=== PATIENT | female | born 1950 | race Caucasian/White ===

== ENCOUNTER → 2016-12-14 | Outpatient (CLI) | payer OTHER ==
[~2016-12-14] MED LIST: ASCO500T16 PO; ATV/1 PO; CALC500C3 PO; CHOL100010 PO; CHOL1TAB76 PO; CLR10 PO; CYM/30 PO; FLUT0.0529 NAE; GLUCTAB4 PO; HYDR-5688 PO; IBUP-1451 PO; MONT1TAB3 PO; MULT-506 PO; OMEP40CA41 PO; POTA1TAB PO; SUMA100T15 PO; SUMA50TA15 PO; TRAZ100T29 PO; TRIA0.1C20 TOP; potassium gluconate PO
--- NOTE | 2016-12-14 14:48 | DIAGNOSTIC IMAGING REPORT ---
RIGHT SHOULDER MRI HISTORY: RIGHT SHOULDER PAIN, BICEP TENDINITIS Right TECHNIQUE: Multiplanar multisequence MRI of the right shoulder was performed without contrast. COMPARISON STUDY: Right shoulder MRI 10/03/2015. FINDINGS: AC joint: Partially obscured by metallic artifact but appears to be grossly intact. Rotator cuff: Abnormal signal within the distal attachment of the supraspinatus tendon consistent with a partial bursal surface tear. Best seen on coronal image 7 there is a linear full-thickness tear within the mid to distal supraspinatus tendon. There is also a small area of increased signal within the distal subscapularis tendon consistent with a partial tear. The infraspinatus and teres minor tendons appear intact. Mild fatty atrophy of supraspinatus muscle. No associated retraction. Trace fluid within the subacromial/subdeltoid bursa. Labrum: Abnormal signal and configuration within the superior labrum consistent with a SLAP tear. Biceps tendon: Abnormal intrasubstance signal proximally consistent with a mild tendinopathy. Bones: No fracture or dislocation. Small amount of cystic change within the posterior lateral humeral head. Cartilage: Intact Miscellaneous: No significant joint effusion. IMPRESSION: 1. Small linear full-thickness tear involving the mid to distal supraspinatus tendon. There is also a partial bursal surface tear at the distal attachment of the supraspinatus tendon. 2. Small partial tear of the distal subscapularis tendon. 3. SLAP tear. 4. Mild proximal biceps tendinopathy. Electronically signed by: Martir Moseley M.D. 12/14/2016 2:47 PM Dictated Date/Time: 12/14/2016 2:38 PM
== END | disposition home or self-care (01) ==
LOC: C.MRI 13:41
PROVIDERS: ATTEND Orthopaedic Surgery
DX: S43.431A Superior glenoid labrum lesion of right shoulder, initial encounter (principal); M75.101 Unspecified rotator cuff tear or rupture of right shoulder, not specified as traumatic; M75.21 Bicipital tendinitis, right shoulder; X58.XXXA Exposure to other specified factors, initial encounter

== ENCOUNTER → 2016-12-21 | Outpatient (CLI) | payer OTHER ==
--- NOTE | 2016-12-21 15:33 | DIAGNOSTIC IMAGING REPORT ---
CHEST 2 VIEWS ROUTINE CLINICAL HISTORY: M75.21 BICEPS TENDINITIS preoperative evaluation COMPARISON STUDY: 02/26/2015 FINDINGS: The bones soft tissues and hemidiaphragms are normal. The cardiomediastinal silhouette is normal. The lungs are clear. The pulmonary vasculature is normal. IMPRESSION: Negative chest. Electronically signed by: Efren Lucio M.D. 12/21/2016 3:32 PM Dictated Date/Time: 12/21/2016 3:31 PM
[2016-12-21 15:36] LABS: BASO % 0.3 %; BASO ABS # 0.02 K/uL (0-0.2); COMPLETE YES; EOS % 0.8 %; HEMATOCRIT 41.3 % (37-47); IG% 0.2 %; LYMPH % 29.8 %; LYMPH ABS # 1.91 K/uL (1.2-3.4); MEAN CELL VOLUME 94.3 fL (80-100); MEAN CORPUSCULAR HEMOGLOBIN 32.4 pg (25-34); MEAN CORPUSCULAR HGB CONC 34.4 g/dl (32-36); MEAN PLATELET VOLUME 9.4 fL (7.4-10.4); MONO % 10.9 %; PLATELET COUNT 298 K/uL (130-400); RED BLOOD COUNT 4.38 M/uL (4.2-5.4); WHITE BLOOD COUNT 6.42 K/uL (4.8-10.8)
[2016-12-21 15:56] LABS: BLOOD UREA NITROGEN 18 mg/dl (7-18); BUN/CREATININE RATIO 21.3 (10-20); CALCIUM 8.9 mg/dl (8.5-10.1); CARBON DIOXIDE 31 mmol/L (21-32); CHLORIDE 99 mmol/L (98-107); CREATININE 0.85 mg/dl (0.60-1.20); GLUCOSE 87 mg/dl (70-99); POTASSIUM 3.8 mmol/L (3.5-5.1); SODIUM 138 mmol/L (136-145)
== END | disposition home or self-care (01) ==
LOC: C.RAD 14:43
PROVIDERS: ATTEND Orthopaedic Surgery
DX: Z01.818 Encounter for other preprocedural examination (principal); M75.21 Bicipital tendinitis, right shoulder

== ENCOUNTER → 2017-01-14 | Day surgery (SDC) | payer OTHER ==
[2016-12-31 09:03] VITALS: Ht 154.9 cm; Wt 52.7 kg
[~2017-01-14] VITALS: Ht 154.9 cm; Wt 52.7 kg
[~2017-01-14] MED LIST changes: +ATROPINE SULFATE 0.1 MG/ML 5ML SYR IV PRN; +BUPIVACAINE/EPINEPHRINE 0.25% 1:200,000 30 ML VIAL ONE; -CHOL100010 PO; +CLINDAMYCIN PHOS 150 MG/ML 2 ML VIAL IV SCH; -CLR10 PO; +DEXAMETHASONE SOD INJ 4 MG/ML VIAL IV PRN; +EpHEDrine SULFATE INJ 50 MG/ML AMP IV PRN; +EpHEDrine SULFATE INJ 50 MG/ML AMP ONE; +EpINEphrine INJ 1MG/ML AMP 1 MG/ML AMP ONE; +FENTANYL CITRATE INJ 50 MCG/1 ML 2 ML VIAL IV PRN; +FENTANYL CITRATE INJ 50 MCG/1 ML 2 ML VIAL ONE; +HYDROCODONE/ACETAMOPHEN 5/325MG TAB PO PRN; +KETOROLAC TROMETHAMINE 15 MG/ML VIAL IV. PRN; +LABETALOL HCL IV 5 MG/ML 20ML IV PRN; +LACTATED RINGER'S 1000ML 1,000 ML IV SCH; +LACTATED RINGER'S 1000ML 500 ML IV SCH; +LIDOCAINE HCL 1% MPF 2 ML VIAL ONE; +LIDOCAINE HCL 2% 2 ML VIAL (20MG/ML) ONE; +METOCLOPRAMIDE HCL INJ 5 MG/ML 2 ML VIAL IV PRN; +MIDAZOLAM HCL 1 MG/ML 2ML VIAL ONE; +MoRPHine SULFATE 10 MG/ML CARP/VIAL IV PRN; +ONDANSETRON INJ 2 MG/ML 2 ML VIAL IV PRN; +PHENYLEPHRINE 100MCG/ML 5ML SYR IV PRN; +PROPOFOL IV EMULSION 10 MG/ML 20 ML VIAL IV ONE; +ROPIVACAINE 0.5% 5 MG/ML 30 ML VIAL ONE; +SODIUM CHLORIDE 0.9% 1000ML 1,000 ML IV SCH; +SODIUM CHLORIDE 0.9% INJ 10 ML VIAL ONE; -SUMA50TA15 PO; -TRAZ100T29 PO; -TRIA0.1C20 TOP; -potassium gluconate PO
--- NOTE | 2017-01-14 11:16 | History & Physical Bridge - SC ---
H&P Re-Evaluation Bridge Note: I have examined the patient, reviewed the History & Physical and in the interval since the performance of the History & Physical I have noted the following changes of clinical significance: No changes noted
--- NOTE | 2017-01-14 13:04 | Discharge Instructions-SurgCtr ---
Discharge Instructions Date of Service Jan 14, 2017. Visit Reason for Visit: Right Shoulder Biceps Tendinitis Discharge Discharge Diagnosis / Problem: SAME ABOVE Discharge Goals Goal(s): Decrease discomfort, Improve function Medications Stopped Medications Name(s): HELD IBUPROFEN FOR ONE WEEK Restart Stopped Medication(s): MAY RESTART ONCE FINISHED WITH THE TORADOL Activity Recommendations Activity Limitations: as noted below Lifting Limitations: until after follow-up appointment Exercise/Sports Limitations: until after follow-up appointment Shower/Bathe: tomorrow Anesthesia . Post Anesthesia Instructions: If you have had General Anesthesia or IV Sedation: * Do not drive today. * Resume driving when surgeon permits. * Do not make important decisions or sign legal documents today. * Call surgeon for: 1. Temperature elevations greater than 101 degrees F. 2. Uncontrollable pain. 3. Excessive bleeding. 4. Persistent nausea and vomiting. 5. Medication intolerance (nausea, vomiting or rash). * For nausea and vomiting use only clear liquids such as: tea, soda, bouillon until nausea subsides, then gradually increase diet as tolerated. * If you have any concerns or questions, call your surgeon's office. If physician is unavailable and it is an emergency, call 911 or go to the nearest emergency room. . Instructions / Follow-Up Instructions / Follow-Up MEDICATIONS: * Resume previous medications unless instructed otherwise by your surgeon. * Always take pain medication on a full stomach or with food to avoid upset stomach. * Do not drink alcohol or drive while taking narcotics. * Ibuprofen or Tylenol may be taken if narcotic not needed. SPECIAL CARE INSTRUCTIONS: __ None _X_ Keep extremity elevated and iced x 48 hours; apply ice 20-30 minutes 8-10 times/day. May remove at night. _X_ Sling (MAY REMOVE AFTER 48 HOURS ONLY TO SHOWER AND FOR THERAPY) _X_24 hrs/day __ Remove at night __ Shoulder Immobilizer __ 24 hrs/day __ Remove at night _X_ Dressing __ Maintain until seen in office, may shower with plastic over site _X_ Remove dressings in 24-48 hours and then may shower _X_ Cover incisions with band-aids after showering __ Do not remove steri-strips Call physician if chills or temperature rises above 102 degrees or pain unrelieved by prescribed pain medications at . . Diet Recommendations Home Diet: no limitations Fluid Restriction: None Procedures Procedures Performed: Right Shoulder Arthroscopy, Small Rotator Cuff Repair, Extensive Debridement, Biceps Tenotomy Pending Studies Studies pending at discharge: no Work Instructions Return To Work: after follow-up Lifting Limitations: NO LIFTING WITH RIGHT ARM Medical Emergencies . Who to Call and When: Medical Emergencies: If at any time you feel your situation is an emergency, please call 911 immediately. . Non-Emergent Contact Non-Emergency issues call your: Primary Care Provider Call Non-Emergent contact if: you have a fever, temperature is above 101, temperature is above 101.5 . . "Provider Documentation" section prepared by Raymond Whitaker.
--- NOTE | 2017-01-14 13:14 | [facility] Post Operative Brief Note ---
Immediate Operative Summary Operative Date Jan 14, 2017. Pre-Operative Diagnosis Right Shoulder Biceps Tendinitis Post-Operative Diagnosis Same Procedure(s) Performed Right Shoulder Arthroscopy, Small Rotator Cuff Repair, Extensive Debridement, Biceps Tenotomy Surgeon Dr. Lerner Pipe Crew Foreman Surgeon(s) Kelly Whitaker PA-C Estimated Blood Loss Minimal Findings as above Specimens None Complication(s) None Disposition Recovery Room / PACU
--- NOTE | 2017-01-14 13:23 | OPERATIVE REPORT ---
DATE OF OPERATION: 01/14/2017 PREOPERATIVE DIAGNOSIS: Partial thickness cuff tear of the right shoulder 1 year status post right shoulder arthroscopy. POSTOPERATIVE DIAGNOSIS: Same. PROCEDURE: Right shoulder diagnostic arthroscopy with extensive debridement including removal of scar tissue, acromioplasty, small far anterior rotator cuff repair and biceps tenotomy. SURGEON: Dr. Talat Lerner. PATROL JUDGE: Lopez Whitaker PA-C, whose assistance was necessary for positioning of the arm and helping with instrumentation. ANESTHESIA: General with a right interscalene nerve block. COMPLICATIONS: None. CONDITION: Stable to PACU. INDICATIONS: Mari is a pleasant 66-year-old female who underwent a right shoulder arthroscopy at an outside institution a year ago. She had a simple acromioplasty at that time. Unfortunately, she never did better after surgery and continued to have pain. Repeat MRI showed a high grade partial thickness cuff tear and biceps tendinopathy. After failing conservative treatment, she elected to undergo arthroscopy. DESCRIPTION OF PROCEDURE: On 01/14/2017, she arrived at [facility] for the above procedure. She was seen in the preoperative holding area and the operative extremity was identified and signed. She was given a preoperative antibiotic and a right interscalene nerve block. She was taken back to the operating room, laid on the table in supine position and put under general anesthesia. She was then put into the beachchair position. The right shoulder was prepped and draped in sterile fashion. Time-out was done and the patient and operative extremity was properly identified. A scope was introduced in the posterior portal. Diagnostic arthroscopy showed no cartilage damage to the humeral head or the glenoid. There was some fraying of the anterior labrum. There was some tightness of the rotator interval. The biceps tendon went through an enlarged biceps belkys mechanism and was read on the dorsal aspect. There was a high grade partial thickness cuff tear of the far anterior supraspinatus and the remaining tissue did not look very good. The subscapularis, infraspinatus and teres minor were all checked and intact. An anterior portal was made, a shaver was used to do a limited debridement of the intraarticular structures and the biceps tendon was arthroscopically tenotomized. The scope was put into the subacromial space. A lateral portal was made. A shaver was used to do a complete subacromial and subdeltoid bursectomy. An ablator was used to tease the coracoacromial ligament off the undersurface of the acromion and a shaver was used to do a revision acromioplasty to smooth out the undersurface of the acromion. Extensive debridement was done all the scar tissue in the subacromial space and hemostasis was controlled with an ablator. The bursal side of the rotator cuff was examined extensively. The rotator cuff tear was easily completed. An additional anterolateral portal was made and Britta cannula was placed. The greater tuberosity was prepared with a ring curette and a microfracture. The rotator cuff was fixed with an Arthrex modified SpeedBridge configuration with a single 4.75 mm BioComposite SwiveLock suture anchor, placed along the medial row, 2 Fiber tapes were passed through the tendon brought down to a single lateral row SwiveLock suture anchor. This gave a nice knotless SpeedBridge repair. A Fiber link was attached to the anterior leading edge of the tear and brought to do a single 4.75 mm BioComposite SwiveLock suture anchor, which was placed in the area of the bicipital groove. This gave an anatomical fixation. Multiple pictures were taken. The scope was placed back into the glenohumeral joint and the articular margin of the rotator cuff had been restored. Multiple pictures were taken. Arthroscopic instruments were removed from the shoulder. Portal sites were closed with 3-0 nylon. She was then placed in a soft dressing and an abduction arm sling. She was then extubated, transferred to a litter and taken to the postanesthesia care unit in stable condition. She tolerated the procedure well. I attest to the content of the Intraoperative Record and any orders documented therein. Any exceptio ns are noted below.
[2017-01-14 14:19] VITALS: TEMP 36.2
--- NOTE | 2017-01-14 14:28 | Anesthesia Progress Nt - [facility] ---
Anesthesia Post Op Note Date & Time Jan 14, 2017 at 14:29 Vital Signs Pain Intensity: 0 Vital Signs Past 12 Hours Date Time Temp Pulse Resp B/P Pulse Ox O2 Delivery O2 Flow Rate FiO2 01/14/17 14:19 36.2 83 18 138/72 98 Room Air 01/14/17 13:46 81 14 01/14/17 13:46 79 14 98 01/14/17 13:44 153/90 01/14/17 13:42 36.1 81 20 153/90 98 Room Air 01/14/17 13:41 81 18 01/14/17 13:41 81 18 143/82 100 01/14/17 13:40 138/68 01/14/17 13:36 75 13 100 01/14/17 13:36 76 13 01/14/17 13:35 130/68 01/14/17 13:31 82 15 100 01/14/17 13:31 81 15 01/14/17 13:30 132/69 01/14/17 13:26 74 15 01/14/17 13:26 74 15 100 01/14/17 13:25 137/71 01/14/17 13:21 73 16 01/14/17 13:21 74 16 100 01/14/17 13:20 132/64 01/14/17 13:16 74 15 100 01/14/17 13:16 74 15 01/14/17 13:15 134/69 01/14/17 13:11 78 27 100 01/14/17 13:11 78 27 01/14/17 13:10 132/73 01/14/17 13:06 76 17 01/14/17 13:06 75 17 100 01/14/17 13:05 136/64 01/14/17 13:03 36.3 77 16 145/64 95 Diffusion Mask 6 01/14/17 13:02 145/64 01/14/17 11:56 0 01/14/17 11:51 0 01/14/17 11:50 0 01/14/17 11:45 0 01/14/17 11:40 76 122/70 100 01/14/17 11:40 76 01/14/17 11:35 73 0 130/66 97 01/14/17 11:35 74 01/14/17 11:30 74 0 98 01/14/17 11:30 73 01/14/17 11:25 74 01/14/17 11:25 74 0 98 01/14/17 10:19 37.9 83 16 114/83 98 Room Air Notes Mental Status: alert / awake / arousable, participated in evaluation Pt Amnestic to Procedure: Yes Nausea / Vomiting: adequately controlled Pain: adequately controlled Airway Patency, RR, SpO2: stable & adequate BP & HR: stable & adequate Hydration State: stable & adequate Anesthetic Complications: no major complications apparent
[2017-01-14 14:35] VITALS: BP 133/71; O2SAT 99
== END | disposition home or self-care (01) ==
LOC: X.SURG 10:05
PROVIDERS: ATTEND Orthopaedic Surgery
DX: M75.101 Unspecified rotator cuff tear or rupture of right shoulder, not specified as traumatic (principal); M75.21 Bicipital tendinitis, right shoulder; K21.9 Gastro-esophageal reflux disease without esophagitis; Z98.890 Other specified postprocedural states; Z98.51 Tubal ligation status; F17.210 Nicotine dependence, cigarettes, uncomplicated; Z88.1 Allergy status to other antibiotic agents; Z88.2 Allergy status to sulfonamides

== ENCOUNTER → 2017-10-07 | Outpatient (CLI) | payer OTHER ==
[~2017-10-07] MED LIST changes: -ATROPINE SULFATE 0.1 MG/ML 5ML SYR IV PRN; -BUPIVACAINE/EPINEPHRINE 0.25% 1:200,000 30 ML VIAL ONE; -CLINDAMYCIN PHOS 150 MG/ML 2 ML VIAL IV SCH; -DEXAMETHASONE SOD INJ 4 MG/ML VIAL IV PRN; -EpHEDrine SULFATE INJ 50 MG/ML AMP IV PRN; -EpHEDrine SULFATE INJ 50 MG/ML AMP ONE; -EpINEphrine INJ 1MG/ML AMP 1 MG/ML AMP ONE; -FENTANYL CITRATE INJ 50 MCG/1 ML 2 ML VIAL IV PRN; -FENTANYL CITRATE INJ 50 MCG/1 ML 2 ML VIAL ONE; -HYDR-5688 PO; -HYDROCODONE/ACETAMOPHEN 5/325MG TAB PO PRN; -KETOROLAC TROMETHAMINE 15 MG/ML VIAL IV. PRN; -LABETALOL HCL IV 5 MG/ML 20ML IV PRN; -LACTATED RINGER'S 1000ML 1,000 ML IV SCH; -LACTATED RINGER'S 1000ML 500 ML IV SCH; -LIDOCAINE HCL 1% MPF 2 ML VIAL ONE; -LIDOCAINE HCL 2% 2 ML VIAL (20MG/ML) ONE; -METOCLOPRAMIDE HCL INJ 5 MG/ML 2 ML VIAL IV PRN; -MIDAZOLAM HCL 1 MG/ML 2ML VIAL ONE; -MoRPHine SULFATE 10 MG/ML CARP/VIAL IV PRN; -ONDANSETRON INJ 2 MG/ML 2 ML VIAL IV PRN; -PHENYLEPHRINE 100MCG/ML 5ML SYR IV PRN; -PROPOFOL IV EMULSION 10 MG/ML 20 ML VIAL IV ONE; -ROPIVACAINE 0.5% 5 MG/ML 30 ML VIAL ONE; -SODIUM CHLORIDE 0.9% 1000ML 1,000 ML IV SCH; -SODIUM CHLORIDE 0.9% INJ 10 ML VIAL ONE
--- NOTE | 2017-10-08 12:56 | MAMMOGRAPHY REPORT ---
BILATERAL DIGITAL SCREENING MAMMOGRAM TOMOSYNTHESIS WITH CAD: 10/07/2017 CLINICAL HISTORY: Routine screening. Patient has no complaints. TECHNIQUE: Breast tomosynthesis in addition to standard 2D mammography was performed. Current study was also evaluated with a Computer Aided Detection (CAD) system. COMPARISON: Comparison is made to exams dated: 09/03/2016 mammogram, 09/02/2015 mammogram, 07/05/2014 mammogram, 06/29/2013 mammogram, 06/28/2012 mammogram, and 06/25/2011 mammogram - [facility]. BREAST COMPOSITION: The tissue of both breasts is almost entirely fatty. FINDINGS: No suspicious masses, calcifications, or areas of architectural distortion are noted in ei ther breast. There has been no significant interval change compared to prior exams. Scattered bilater al benign-appearing calcifications are not significantly changed. IMPRESSION: ACR BI-RADS CATEGORY 2: BENIGN There is no mammographic evidence of malignancy. A 1 year screening mammogram is recommended. The pa tient will receive written notification of the results. Approximately 10% of breast cancers are not detected with mammography. A negative mammographic report should not delay biopsy if a clinically suggestive mass is present. Nena Glaser M.D. /:10/07/2017 14:40:14 Assistant Foreman: Corinne AKERS(James)(M), [facility] [address] letter sent: Normal 1/2 BI-RADS Code: ACR BI-RADS Category 2: Benign
== END | disposition home or self-care (01) ==
LOC: C.MAMM 13:25
PROVIDERS: ATTEND Family Medicine
DX: Z12.31 Encounter for screening mammogram for malignant neoplasm of breast (principal)

== ENCOUNTER 2017-12-10 14:27 | Emergency (ER) | payer OTHER ==
[~2017-12-10] VITALS: Ht 154.9 cm; Wt 55.0 kg
[~2017-12-10 14:27] MED LIST changes: -ASCO500T16 PO; -ATV/1 PO; -OMEP40CA41 PO
[2017-12-10 14:31] VITALS: TEMP 36.5; Ht 154.9 cm; Wt 55.0 kg
[2017-12-10] MEDS ORDERED: ATV/1 PO (16:17)
[2017-12-10] MEDS ORDERED: OMEP40CA41 PO (16:25)
[2017-12-10] MEDS ORDERED: ONDANSETRON INJ 2 MG/ML 2 ML VIAL IV STA (16:29)
[2017-12-10] MEDS ORDERED: MoRPHine SULFATE 4 MG/ML 1 ML CARP\\VIAL IV STA (16:29)
[2017-12-10] MEDS ORDERED: ASCO500T16 PO (16:30)
[2017-12-10 16:48] LABS: BASO % 0.2 %; BASO ABS # 0.01 K/uL (0-0.2); EOS % 0.6 %; EOS ABS # 0.03 K/uL (0-0.5); HEMATOCRIT 39.2 % (37-47); HEMOGLOBIN 13.3 g/dL (12.0-16.0); LYMPH % 40.2 %; MEAN CELL VOLUME 95.6 fL (80-100); MEAN CORPUSCULAR HEMOGLOBIN 32.4 pg (25-34); MEAN CORPUSCULAR HGB CONC 33.9 g/dl (32-36); MEAN PLATELET VOLUME 8.7 fL (7.4-10.4); MONO % 11.5 %; MONO ABS # 0.57 K/uL (0.11-0.59); NEUT % 47.5 %; NEUT ABS # 2.36 K/uL (1.4-6.5); PLATELET COUNT 265 K/uL (130-400); RED CELL DISTRIBUTION WIDTH CV 13.2 % (11.5-14.5); RED CELL DISTRIBUTION WIDTH SD 45.8 fL (36.4-46.3); WHITE BLOOD COUNT 4.97 K/uL (4.8-10.8)
[2017-12-10] MEDS ORDERED: OXYB5TAB PO (16:58)
[2017-12-10] MEDS ORDERED: MAGN400T6 PO (16:58)
[2017-12-10] MEDS ORDERED: FLUT0.15 NAE (16:58)
[2017-12-10] MEDS ORDERED: ACET-1256 PO (16:58)
[2017-12-10] MEDS ORDERED: RIBO1TAB4 PO (16:58)
[2017-12-10 17:06] LABS: BLOOD UREA NITROGEN 19 mg/dl (7-18); CALCIUM 9.5 mg/dl (8.5-10.1); CARBON DIOXIDE 29 mmol/L (21-32); CREATININE 0.94 mg/dl (0.60-1.20); GLUCOSE 65 mg/dl (70-99); POTASSIUM 4.2 mmol/L (3.5-5.1); SODIUM 140 mmol/L (136-145)
--- NOTE | 2017-12-10 18:10 | DIAGNOSTIC IMAGING REPORT ---
LEFT UPPER EXTREMITY VENOUS DOPPLER HISTORY: L arm pain COMPARISON STUDY: None. FINDINGS: The left internal jugular vein is patent. There is normal flow within the left subclavian vein. There is normal flow and compressibility within the left axillary, basilic, brachial, radial, ulnar, and visualized cephalic veins. IMPRESSION: No DVT within the left upper extremity. Electronically signed by: Martir Moseley M.D. 12/10/2017 6:08 PM Dictated Date/Time: 12/10/2017 6:08 PM
--- NOTE | 2017-12-10 18:25 | DIAGNOSTIC IMAGING REPORT ---
CERVICAL SPINE 5 VIEWS HISTORY: Neck pain with pain down L arm COMPARISON: None. FINDINGS: The cervical spine is visualized from C1 through the superior endplate of T1. There is no fracture. There is 1.5 mm of anterolisthesis of C3 on C4. Moderate facet osteoarthritis at C3-C4 and C7-T1. Disc spaces are preserved. Prevertebral soft tissues and the atlantodens interval are intact. No significant neural foraminal narrowing. The lung apices are clear. IMPRESSION: 1. No fractures within the cervical spine. 2. C3-C4 and C7-T1 moderate facet osteoarthritis. 3. Minimal anterolisthesis of C3 on C4. Electronically signed by: Martir Moseley M.D. 12/10/2017 6:24 PM Dictated Date/Time: 12/10/2017 6:20 PM
[2017-12-10 18:37] VITALS: BP 133/70; PULSE 60; O2SAT 98
--- NOTE | 2017-12-10 18:45 | EMERGENCY ROOM VISIT NOTE ---
ED Visit Note First contact with patient: 16:23 This Patient was discussed with the physician financial sales assistant, Shreyas Mariee PA-C. The pertinent historical and physical exam findings were confirmed. I agree with the studies ordered and with the interpretations of these studies. I agree with the disposition and care plan.
[2017-12-10] MEDS ORDERED: DEXAMETHASONE INJ 10 MG in SYRINGE 0 ML IV STA (18:49)
[2017-12-10] MEDS ORDERED: TRAMADOL HCL 50 MG HOME PACK PO STA (18:49)
[2017-12-10] MEDS ORDERED: TRAM-10 PO (18:52)
[2017-12-10] MEDS ORDERED: METH4PAK PO (18:52)
--- NOTE | 2017-12-10 18:53 | EMERGENCY ROOM VISIT NOTE ---
History First contact with patient: 16:23 Chief Complaint: ARM PAIN Stated Complaint: PAIN DOWN MY LEFT ARM History of Present Illness The patient is a 67 year old female who presents to the Emergency Room via private vehicle with complaints of "pain down my left arm". The patient notes that she has been experiencing left arm pain radiating from her left neck down to her fingertips 1 month. There is no known injury. She states that she saw her family doctor this past week and was informed this is likely a pinched nerve , and has a scheduled follow-up with Dr. Noriega of neurology in about a month and a half. She notes that now the pain is worsening, she could not sleep last night and decided to be evaluated. She denies with this any fevers, chills, chest pain or shortness of breath. She does note associated headaches from time to time. Review of Systems A complete 6-point Review of Systems was discussed with the patient, with pertinent positives and negatives listed in the History of Present Illness. All remaining Review of Systems questions can be considered negative unless otherwise specified. Past Medical/Surgical History Medical Problems: (1) Chronic Sinusitis Nos (2) Diverticulosis Colon (W/O Ment Of Hemorrhage) (3) Lumbago (4) Ovarian Cyst Nec/Nos (5) Overactive bladder Family History No pertinent family history Social History Smoking Status: Former Smoker Alcohol Use: occasionally Marital Status: Occupation Status: retired Current/Historical Medications Scheduled Ascorbic Acid (Ascorbic Acid), 500 MG PO QAM Cholecalciferol (D 1999), 1 TAB PO QAM Fluticasone Propionate (Nasal) (Flonase Allergy Relief), 2 SPRAYS STERLING QAM Wokpkkecars-Ted-Ous C-Manganes (Glucosamine Msm Complex), 1 TAB PO QAM Magnesium Oxide (Mag-Ox), 400 MG PO DAILY Methylprednisolone (Medrol Dosepak), 0 PO DAILY Montelukast Sodium (Singulair), 10 MG PO HS Multivitamin (Multivitamin), 1 TAB PO QAM Omeprazole (Prilosec), 40 MG PO QAM Oxybutynin Chloride (Oxybutynin Chloride Er), 5 MG PO DAILY Potassium Gluconate (Potassium Gluconate), 1 TAB PO QAM Riboflavin (Riboflavin), 400 MG PO DAILY Scheduled PRN Acetaminophen (Tylenol), 1,000 MG PO Q6 PRN for Pain Calcium Carbonate (Tums), 1 TAB PO DAILY PRN for Indigestion Ibuprofen Tab (Motrin), 800 MG PO DAILY PRN for Pain Lorazepam (Ativan), 1 MG PO BID PRN for Anxiety Sumatriptan Succinate (Imitrex), 1 TAB PO UD PRN for Migraine Tramadol (Ultram), 1 TAB PO TID PRN for pain Physical Exam Vital Signs Date Time Temp Pulse Resp B/P (MAP) Pulse Ox O2 Delivery O2 Flow Rate FiO2 12/10/17 18:37 60 16 133/70 98 Room Air 12/10/17 16:30 72 16 145/75 96 Room Air 12/10/17 14:31 36.5 87 16 121/70 95 Room Air Physical Exam VITAL SIGNS - Vital signs and nursing notes were reviewed. Stable. GENERAL -67-year-old female appearing her stated age who is in no acute distress. Communicates well with provider and answers questions appropriately. SKIN - Without rashes. No petechial rashes. NECK - Neck with FROM. No meningismus. There is superior trapezius tenderness noted to the left. LUNGS - Chest wall symmetric without accessory muscle use, intercostals retractions, or central cyanosis. Normal vesicular breath sounds CTA B/L. No wheezes, rales, or rhonchi appreciated. CARDIAC - RRR with S1/S2. No murmur, rubs, or gallops appreciated. EXTREMITIES - No clubbing or peripheral cyanosis. No pretibial edema present. She is neurovascularly intact in left upper extremity. Tenderness to palpation overlying the proximal left arm. There is also tenderness in the left superior trapezius muscle. Excellent reflex noted in the biceps region of the left arm. Blade Changer strength intact. No neurovascular deficits appreciated in left upper extremity. Medical Decision & Procedures ER Provider Diagnostic Interpretation: CERVICAL SPINE 5 VIEWS HISTORY: Neck pain with pain down L arm COMPARISON: None. FINDINGS: The cervical spine is visualized from C1 through the superior endplate of T1. There is no fracture. There is 1.5 mm of anterolisthesis of C3 on C4. Moderate facet osteoarthritis at C3-C4 and C7-T1. Disc spaces are preserved. Prevertebral soft tissues and the atlantodens interval are intact. No significant neural foraminal narrowing. The lung apices are clear. IMPRESSION: 1. No fractures within the cervical spine. 2. C3-C4 and C7-T1 moderate facet osteoarthritis. 3. Minimal anterolisthesis of C3 on C4. Electronically signed by: Martir Moseley M.D. 12/10/2017 6:24 PM Dictated Date/Time: 12/10/2017 6:20 PM Laboratory Results 12/10/17 16:39 Red Blood Count 4.10, Mean Corpuscular Volume 95.6, Mean Corpuscular Hemoglobin 32.4, Mean Corpuscular Hemoglobin Concent 33.9, Mean Platelet Volume 8.7, Neutrophils (%) (Auto) 47.5, Lymphocytes (%) (Auto) 40.2, Monocytes (%) (Auto) 11.5, Eosinophils (%) (Auto) 0.6, Basophils (%) (Auto) 0.2, Neutrophils # (Auto ) 2.36, Lymphocytes # (Auto) 2.00, Monocytes # (Auto) 0.57, Eosinophils # (Auto ) 0.03, Basophils # (Auto) 0.01 12/10/17 16:39 Test 12/10/17 16:39 White Blood Count 4.97 K/uL (4.8-10.8) Red Blood Count 4.10 M/uL (4.2-5.4) Hemoglobin 13.3 g/dL (12.0-16.0) Hematocrit 39.2 % (37-47) Mean Corpuscular Volume 95.6 fL (80-100) Mean Corpuscular Hemoglobin 32.4 pg (25-34) Mean Corpuscular Hemoglobin Concent 33.9 g/dl (32-36) Platelet Count 265 K/uL (130-400) Mean Platelet Volume 8.7 fL (7.4-10.4) Neutrophils (%) (Auto) 47.5 % Lymphocytes (%) (Auto) 40.2 % Monocytes (%) (Auto) 11.5 % Eosinophils (%) (Auto) 0.6 % Basophils (%) (Auto) 0.2 % Neutrophils # (Auto) 2.36 K/uL (1.4-6.5) Lymphocytes # (Auto) 2.00 K/uL (1.2-3.4) Monocytes # (Auto) 0.57 K/uL (0.11-0.59) Eosinophils # (Auto) 0.03 K/uL (0-0.5) Basophils # (Auto) 0.01 K/uL (0-0.2) RDW Standard Deviation 45.8 fL (36.4-46.3) RDW Coefficient of Variation 13.2 % (11.5-14.5) Immature Granulocyte % (Auto) 0.0 % Immature Granulocyte # (Auto) 0.00 K/uL (0.00-0.02) Erythrocyte Sedimentation Rate 3 mm/hr (0-21) Anion Gap 7.0 mmol/L (3-11) Est Creatinine Clear Calc Drug Dose 43.8 ml/min Estimated GFR () 72.8 Estimated GFR (Non- 62.8 BUN/Creatinine Ratio 20.2 (10-20) Calcium Level 9.5 mg/dl (8.5-10.1) Troponin I < 0.015 ng/ml (0-0.045) C-Reactive Protein < 0.29 mg/dl (0-0.29) Medications Administered Medications (Trade) Dose Ordered Sig/Nuzhat Route Start Time Stop Time Status Last Admin Dose Admin Morphine Sulfate (MoRPHine SULFATE INJ) 4 mg NOW STAT IV 12/10/17 16:29 12/10/17 16:31 DC 12/10/17 16:50 4 MG Ondansetron HCl (Zofran Inj) 4 mg NOW STAT IV 12/10/17 16:29 12/10/17 16:31 DC 12/10/17 16:50 4 MG Tramadol HCl (Ultram Home Pack) 1 homepack UD STAT PO 12/10/17 18:49 12/10/17 18:51 DC 12/10/17 19:03 1 HOMEPACK Dexamethasone Sodium Phosphate (Dexamethasone Inj Pf) 10 mg STK-MED ONCE .ROUTE 12/10/17 18:59 12/10/17 19:00 DC 12/10/17 19:03 10 MG Medical Decision Patient was seen and evaluated as above. She presents to us today with pain traveling from the left side of her neck down to the left fingers. This is not worse with exertion. I do not suspect any cardiac etiology. It is reproducible on exam. I favor she likely is experiencing cervical radiculopathy. Vital signs are stable. X-ray was obtained of the cervical spine and ultrasound was obtained of the left upper extremity to rule out DVT. There is no upper extremity DVT. X-ray does reveal some degenerative change with certainty can contribute. I do not believe that at this time an MRI is warranted in the emergency department setting. I believe the treatment with steroids, and pain medication is appropriate with close follow-up with the family doctor and with a product info specialist and perhaps neurology. Case was also discussed with the attending physician who also personally evaluated the patient. She will be discharged home on a Medrol Dosepak after an IV dose of steroids here today, as well as tramadol. She has many allergies listed, has never had tramadol and I cautioned her that if she experiences a reaction she is to return. While here she was given morphine for pain. Her pain was alleviated. She was educated that she likely is experiencing a small bulging disc in the neck/pinched nerve. I informed her that this time she appears stable for outpatient management. She was educated upon management, educated upon worrisome symptoms in which to return, had questions answered prior to discharge, and was discharged home in good condition. Medication list reviewed. Blood pressure found to be only slightly elevated I believe secondary to situation. In the evaluation and treatment of this patient, the following differential diagnoses were considered: Musculoskeletal Strain, Discitis, Cervical Spine Fracture, Cervical Spine Dislocation, Cervical Spine Subluxation, Cervical Spondylosis, Fibromyalgia, Osteoarthritis, Polymyalgia Rheumatica, Psychogenic Pain Disorder, Tumor of Soft Tissue or Spine. Impression Primary Impression: Arm pain, left Additional Impression: Cervical radiculopathy Departure Information Dispostion Home / Self-Care Condition GOOD Prescriptions Methylprednisolone (MEDROL DOSEPAK) 4 Mg Jarod 0 PO DAILY, #1 PKT Prov: Shreyas Mariee PA-C 12/10/17 Tramadol (Ultram) 50 Mg Tab 1 TAB PO TID Y for pain , #9 TAB for initial treatment Prov: Shreyas Mariee PA-C 12/10/17 Referrals Bashir Fontanez M.D. (PCP) Shiva Akers, DO Patient Instructions My [facility] Additional Instructions You have been treated in the Emergency Department for neck Pain. You have received pain medicine in the emergency department which impairs your ability to operate a vehicle. It is illegal for you to drive after receiving these medicines. You have been prescribed tramadol to be used for pain control. This is a narcotic medication. You cannot drive or consume alcohol while on this medicine. This medicine should only be used for pain that cannot be controlled with [id number] pain medicines. You have been prescribed a Medrol Dosepak. Take this medication as prescribed. You should take the COMPLETE 6-day course of this medication. This is an anti- inflammatory medicine that will help to minimize your symptoms. For pain control, you can use the following cbpu-ttr-[id number] medicines (if >12 yo): - Regular strength (325mg/tab) Tylenol (acetaminophen) 2 tabs every 4-6 hours as needed. Do not exceed 12 tablets in a 24 hour period. Avoid taking more than 3 grams (3000 mg) of Tylenol per day. This includes any other sources of acetaminophen you may take on a regular basis. - Regular strength (200 mg/tab) Advil (ibuprofen) 1-2 tabs every 4-6 hours as needed. Do not exceed a dose of 3200 mg per day. If this is an acute injury, ice can be applied to the area of pain for the first 3 days to help decrease pain and inflammation. After the first 3 days, a heating pad can be used over the area for continued soothing relief. You should schedule a follow-up appointment in 2-3 days with your Primary Care Provider and Dr. Akers, product info specialist for further evaluation and treatment of your neck pain. Return to the Emergency Department if your current symptoms worsen despite treatment course outlined above, or if you develop any of the following symptoms : intractable pain despite aforementioned treatment course, loss of control of your bowel or bladder, numbness or tingling in your groin, or development of a fever. Problem Qualifiers
[2017-12-10] MEDS ORDERED: DEXAMETHASONE **PF** INJ 10 MG/ML VIAL ONE (18:59)
== END 2017-12-10 19:08 | disposition home or self-care (01) ==
LOC: C.EDB 14:28 → C.EDD 19:08
DX: M79.602 Pain in left arm (principal); M54.12 Radiculopathy, cervical region; Z87.891 Personal history of nicotine dependence

== ENCOUNTER → 2017-12-27 | Outpatient (CLI) | payer OTHER ==
[~2017-12-27] MED LIST changes: +ACET-1256 PO; +ASCO500T16 PO; +ATV/1 PO; -CYM/30 PO; -FLUT0.0529 NAE; +FLUT0.15 NAE; +MAGN400T6 PO; +OMEP40CA41 PO; +OXYB5TAB PO; +RIBO1TAB4 PO; +TRAM-10 PO
--- NOTE | 2017-12-27 14:46 | DIAGNOSTIC IMAGING REPORT ---
MRI CERVICAL WITHOUT CONTRAST CLINICAL HISTORY: Neck pain with left arm radiculopathy. Headaches. TECHNIQUE: Sagittal and axial T1, T2 and STIR images were obtained. COMPARISON STUDY: Conventional radiographic study dated 12/10/2017 There are no suspicious areas of marrow replacement. No intrinsic cervical cord lesions are visualized. C2-3: There is no evidence of disc bulge or focal herniation. There is no spinal or foraminal stenosis. C3-4: There is no evidence of disc bulge or focal herniation. There is no spinal or foraminal stenosis. C4-5: There is minor anterolisthesis of C4 on C5. There is a mild circumferential disc bulge. There is minimal effacement of the anterior thecal sac. No significant spinal or foraminal stenosis is felt to be present. C5-6 :There are no disc bulges or focal herniations. There is no spinal or foraminal stenosis. C6-7: There is no evidence of disc bulge or focal herniation. There is no evidence of spinal or foraminal stenosis. C7-T1: There is no evidence of disc bulge or focal herniation. There is no evidence of spinal or foraminal stenosis. The study is degraded by patient motion artifact. IMPRESSION: 1. Study mildly degraded by patient motion 2. Mild anterolisthesis of C4 on C5 3. Mild C4-5 disc bulge. 4. No evidence of significant spinal or foraminal stenosis Electronically signed by: Jose Juan Shaw M.D. 12/27/2017 2:45 PM Dictated Date/Time: 12/27/2017 2:41 PM
== END | disposition home or self-care (01) ==
LOC: C.MRI 13:54
PROVIDERS: ATTEND Orthopaedic Surgery Orthopaedic Surgery of the Spine
DX: M50.20 Other cervical disc displacement, unspecified cervical region (principal)

== ENCOUNTER 2018-01-31 14:53 | Emergency (ER) | payer OTHER ==
[~2018-01-31] VITALS: Ht 154.9 cm; Wt 54.2 kg
[2018-01-31 15:07] VITALS: TEMP 36.8; Ht 154.9 cm; Wt 54.2 kg
[2018-01-31] MEDS ORDERED: MoRPHine SULFATE 10 MG/ML CARP/VIAL IM STA (15:59)
[2018-01-31] MEDS ORDERED: ONDANSETRON 4MG OD TAB PO ONE (16:00)
--- NOTE | 2018-01-31 16:17 | DIAGNOSTIC IMAGING REPORT ---
L SHOULDER MIN 2 VIEWS ROUTINE HISTORY: 67 years-old Female L shoulder pain acute left shoulder pain COMPARISON: None available TECHNIQUE: 3 views of the left shoulder FINDINGS: Mild AC joint and glenohumeral degenerative changes. No acute fracture or dislocation. Imaged lung olivo appear clear. IMPRESSION: No acute fracture or dislocation. The above report was generated using voice recognition software. It may contain grammatical, syntax or spelling errors. Electronically signed by: Maxx Fisher M.D. 01/31/2018 4:16 PM Dictated Date/Time: 01/31/2018 4:14 PM
[2018-01-31] MEDS ORDERED: OXYC-57 PO (16:48)
[2018-01-31 17:20] VITALS: BP 146/81; PULSE 76; O2SAT 97
--- NOTE | 2018-02-01 07:56 | EMERGENCY ROOM VISIT NOTE ---
ED Visit Note First contact with patient: 15:14 Chief Complaint: Left shoulder pain. History of Present Illness: Ms. Babin is a 67-year-old white female who ambulates into the ED complaining of anterior shoulder pain. Historically patient reports she has been having ongoing cervical spine and left shoulder pain since October of this year. She was seen once in the emergency department and x-rays were performed of her cervical spine and were negative. She has followed up with Dr. Akers, orthopedic clinical trials specialist, and had an MRI of her cervical spine performed which was negative and she is followed up with her PCP and had an EMG performed that was also negative. Last week while at her PCPs office she reports that she received an injection of steroids into her shoulder and was given a prescription for tramadol for home use and has had no relief of her discomfort. Currently she is complaining of a deep achy sensation over the anterior aspect of the left shoulder including the acromioclavicular joint, the humeral head and in the bicipital groove area. She rates her discomfort 8/10. She reports initially her pain was located just in her shoulder but now it is gradually gone down throughout the anterior upper arm and is now extending down into the forearm. Her pain worsens with palpation and minimally with all active movements of the shoulder. She reports she has had minimal relief with the use of hot packs but has had no relief from ice, ibuprofen, tramadol and has previously noted her steroid injections. Associated with her pain she reports she has a decrease in strength at the level of the shoulder. She denies any associated symptoms including fevers, chills, sweats, skin eruptions, worsening neck pain, chest pain, shortness of breath, upper respiratory tract symptoms, extremity numbness/tingling, decreased appetite. Additionally she denies any previous significant surgeries on the left shoulder. Additionally it should be noted that the patient does report she has had previous right shoulder surgery for repair of a rotator cuff injury and she feels that this pain is similar. She also reports she talked to her insurance company and reports that she got verbal approval for an MRI of the shoulder. Review of Systems: As noted above in history of present illness. 8 body systems were reviewed and found to be negative as noted above. Past Medical History: GERD, overactive bladder, status post appendectomy, tubal ligation, sinus surgery, right shoulder rotator cuff injury repair. Current Medications: Medications Dose Route/Sig Max Daily Dose Days Date Category Dose Instructions Ultram (Tramadol HCl) 50 Mg Tab 1 Tab PO TID PRN 12/10/17 Rx for initial treatment Riboflavin 400 Mg Tab 400 Mg PO DAILY 12/10/17 Reported Tylenol (Acetaminophen) 500 Mg Tab 1,000 Mg PO Q6 PRN 12/10/17 Reported Mag-Ox (Magnesium Oxide) 400 Mg Tab 400 Mg PO DAILY 12/10/17 Reported Flonase Allergy Relief (Fluticasone Propionate (Nasal)) 50 Mcg/Act Spr 2 Sprays STERLING QAM 12/10/17 Reported Multivitamin (Multivitamins) Tab 1 Tab PO QAM 12/31/16 Reported Glucosamine Msm Complex (Tzwwciytkfw-Hzu-Klb C-Manganes) 1 Tab Tab 1 Tab PO QAM 12/31/16 Reported Potassium Gluconate 595 Mg Tab 1 Tab PO QAM 12/31/16 Reported Motrin (Ibuprofen) 800 Mg Tab 800 Mg PO DAILY PRN 12/31/16 Reported Tums (Calcium Carbonate) 500 Mg Chew 1 Tab PO DAILY PRN 12/31/16 Reported D 2000 (Cholecalciferol) 2,000 Unit Tab 1 Tab PO QAM 12/31/16 Reported Imitrex (Sumatriptan Succinate) 100 Mg Tab 1 Tab PO UD PRN 12/31/16 Reported Singulair (Montelukast Sodium) 10 Mg Tab 10 Mg PO HS 02/11/15 Reported Ascorbic Acid 500 Mg Tab 500 Mg PO QAM 05/19/14 Reported Prilosec (Omeprazole) 40 Mg Cap 40 Mg PO QAM 05/19/14 Reported Ativan (Lorazepam) 1 Mg Tab 1 Mg PO BID PRN 05/19/14 Reported Allergies to Medications: Amoxicillin, cephalexin, hydrocodone, oxycodone, penicillin, sulfa. Social History: Patient is not employed; she feels safe in her home environment ; she denies tobacco use and admits to alcohol use. Physical Examination: Vital Signs: Date Time Temp Pulse Resp B/P (MAP) Pulse Ox O2 Delivery O2 Flow Rate FiO2 01/31/18 17:20 76 16 146/81 97 01/31/18 15:07 36.8 81 16 151/86 97 Room Air GENERAL: 67-year-old female in mild distress due to pain, nontoxic-appearing, afebrile and hemodynamically stable. NEUROLOGICAL: Awake, alert and oriented to person, place and time. Answering questions appropriately and following commands. Normal gait. Good hand eye coordination. No focal motor sensory deficits. SKIN: Warm, dry and pink. No soft tissue eruptions or trauma noted. HEENT: Atraumatic and normocephalic. BACK: Mild tenderness diffusely throughout the cervical spine and para musculature without muscle spasm, bony deformity, bony crepitus, swelling or ecchymosis. Full range of motion of the cervical spine. THORAX: Lungs sounds are clear to auscultation and equal bilaterally with symmetrical chest wall. HEART: Regular rate and rhythm. No gallops, rubs or murmurs are appreciated. ABDOMEN: Flat, soft and nontender. Positive bowel sounds in all quadrants. No guarding, rigidity or organomegaly. LEFT UPPER EXTREMITY: No gross bony deformity. Moderate tenderness over the acromioclavicular joint, the anterior humeral head, the area associated with the bicipital groove, throughout the mid and distal humerus and the proximal forearm. There is no bony deformity or crepitus. Patient has full range of motion in all movements of the shoulder with a slight increase in pain with extension and abduction, full range of motion of the elbow and forearm and wrist. 2+ bicipital deep tendon reflexes and equal bilaterally. 4/5 muscle strength in all movements of the shoulder, elbow, wrist and forearm; her strength feels slightly decreased when compared to the right. Distal pulses are intact and capillary refill was brisk. She is able to distinguish light sensations through all dermatomes of the arm and hand. ED Course: Patient is assessed as noted above. Patient's medication list was reviewed. Left Shoulder X-Rays: Were read by myself and the radiologist showing no acute fractures or dislocations. Radiologist notes mild acromioclavicular joint and glenohumeral joint degenerative changes. Patient was given 6 mg of morphine IM and 4 mg of Zofran ODT for her symptoms. EKG: Was read by myself and reviewed with Dr. Harper; shows sinus rhythm with a shortened IA interval and nonspecific T-wave abnormalities. This was compared to a previous and shows T-wave inversion now evident in the inferior leads and the amplitude of the T-wave in the lateral leads have increased. Patient was placed in arm sling. Patient was educated about today's findings and instructed on her treatment plan ; she verbalized understanding and agreement with this plan. Clinical Impression: Anterior left shoulder pain. Decision-Making: Initially my differential diagnosis I considered worsening degenerative changes, acromioclavicular joint separation, bicipital tendinitis, bicipital tendon rupture, glenoid humeral fracture/subluxation, cervical spine radiculopathy and other causes. Disposition: Patient discharged home in stable condition accompanied by her ; prior to departure she was reassessed and subjectively reported she was feeling better and rated her discomfort 6/10. Plan: Comfort measures were discussed with the patient including rest, heat and ice use, sling use and she was placed on a sliding pain medication scale of ibuprofen, acetaminophen and/or Percocet; her name was checked on the state database and no red flags were noted and she was given appropriate narcotic precautions. Additionally it should be noted I queried the patient on what her allergic reaction symptoms were to oxycodone and she reported itchy skin and she never reported any hives, oral swelling or shortness of breath. She was instructed to take 25-50 mg of Benadryl before each use of Percocet and come to the hospital immediately for any signs of allergic reaction. Patient was encouraged to keep her upcoming family appointment an orthopedic appointment for definitive care and treatment. She was encouraged to contact her PCP and seek help in arranging an outpatient MRI for her upcoming orthopedic appointment next week. Patient was encouraged return to the ED for worsening/uncontrolled pain, uncontrolled swelling, arm weakness/numbness/tingling or any new/concerning symptoms.
== END 2018-01-31 17:20 | disposition home or self-care (01) ==
LOC: C.EDB 14:54 → C.EDD 17:20
DX: M25.512 Pain in left shoulder (principal); K21.9 Gastro-esophageal reflux disease without esophagitis; N32.81 Overactive bladder; Z98.51 Tubal ligation status; Z79.899 Other long term (current) drug therapy; Z88.0 Allergy status to penicillin; Z88.1 Allergy status to other antibiotic agents; Z88.5 Allergy status to narcotic agent; Z88.2 Allergy status to sulfonamides

== ENCOUNTER → 2018-02-21 | Outpatient (CLI) | payer OTHER ==
[~2018-02-21] MED LIST changes: -OXYB5TAB PO; +OXYC-57 PO
[2018-02-21 16:05] LABS: BASO % 0.1 %; BASO ABS # 0.01 K/uL (0-0.2); EOS % 0.6 %; EOS ABS # 0.04 K/uL (0-0.5); HEMATOCRIT 41.3 % (37-47); HEMOGLOBIN 14.1 g/dL (12.0-16.0); IG# 0.01 K/uL (0.00-0.02); LYMPH % 29.5 %; MEAN CELL VOLUME 96.3 fL (80-100); MEAN CORPUSCULAR HEMOGLOBIN 32.9 pg (25-34); MEAN CORPUSCULAR HGB CONC 34.1 g/dl (32-36); MEAN PLATELET VOLUME 9.1 fL (7.4-10.4); MONO % 6.2 %; MONO ABS # 0.42 K/uL (0.11-0.59); NEUT % 63.5 %; NEUT ABS # 4.29 K/uL (1.4-6.5); PLATELET COUNT 288 K/uL (130-400); RED CELL DISTRIBUTION WIDTH CV 13.7 % (11.5-14.5); RED CELL DISTRIBUTION WIDTH SD 48.6 fL (36.4-46.3); WHITE BLOOD COUNT 6.77 K/uL (4.8-10.8)
[2018-02-21 16:20] LABS: BLOOD UREA NITROGEN 14 mg/dl (7-18); CARBON DIOXIDE 34 mmol/L (21-32); CREATININE 0.82 mg/dl (0.60-1.20); GLUCOSE 90 mg/dl (70-99); SODIUM 141 mmol/L (136-145)
== END | disposition home or self-care (01) ==
LOC: C.LAB 15:05
PROVIDERS: ATTEND Orthopaedic Surgery
DX: Z01.812 Encounter for preprocedural laboratory examination (principal); M75.80 Other shoulder lesions, unspecified shoulder

== ENCOUNTER → 2018-03-17 | Day surgery (SDC) | payer OTHER ==
[2018-02-25 11:35] VITALS: Ht 154.9 cm; Wt 52.7 kg
[~2018-03-17] VITALS: Ht 154.9 cm; Wt 52.7 kg
[~2018-03-17] MED LIST changes: +ATROPINE SULFATE 0.1 MG/ML 5ML SYR IV PRN; +BUPIVACAINE 0.25% 30 ML VIAL ONE; +CEFAZOLIN 2000MG IV PUSH 15 ML IV SCH; +DEXAMETHASONE SOD INJ 4 MG/ML VIAL ONE; +EpHEDrine SULFATE INJ 50 MG/ML AMP IV PRN; +EpINEphrine INJ 1MG/ML AMP 1 MG/ML AMP ONE; +FENTANYL CITRATE INJ 50 MCG/1 ML 2 ML VIAL IV PRN; +FENTANYL CITRATE INJ 50 MCG/1 ML 2 ML VIAL ONE; +FLUMAZENIL 0.1 MG/1 ML 10 ML VIAL IV PRN; +KETO10TA PO; +KETOROLAC TROMETHAMINE 15 MG/ML VIAL IV. PRN; +LABETALOL HCL IV 5 MG/ML 20ML IV PRN; +LACTATED RINGER'S 1000ML 1,000 ML IV SCH; +LIDOCAINE HCL 2% 2 ML VIAL (20MG/ML) ONE; +MEPERIDINE HCL 25 MG/ML CARP IV PRN; +MIDAZOLAM HCL 1 MG/ML 2ML VIAL ONE; +NALOXONE HCL 0.4 MG/1 ML VIAL/CARP IV PRN; +ONDA4TAB46 PO; +ONDANSETRON INJ 2 MG/ML 2 ML VIAL IV PRN; +ONDANSETRON INJ 2 MG/ML 2 ML VIAL ONE; -OXYC-57 PO; +PHENYLEPHRINE 100MCG/ML 5ML SYR IV PRN; +PROPOFOL IV EMULSION 10 MG/ML 20 ML VIAL ONE; +ROPIVACAINE 0.5% 5 MG/ML 30 ML VIAL ONE; +SODIUM CHLORIDE 0.9% 1000ML 1,000 ML IV SCH; +TRAMADOL HCL 50 MG TAB PO PRN
--- NOTE | 2018-03-17 11:13 | [facility] Post Operative Brief Note ---
Immediate Operative Summary Operative Date March 17, 2018. Pre-Operative Diagnosis Left Shoulder AC joint disorder soft tissue lesion Post-Operative Diagnosis Same Procedure(s) Performed Left Shoulder Arthr;oscopy with Subacromial Decompression, Distal Clavicle Excision Surgeon Dr. Esther Lerner Sales Performance Analyst Surgeon(s) Kelly Whitaker PA-C Estimated Blood Loss 5 cc Findings Consistent with Post-Op Diagnosis Specimens None Drains None Anesthesia Type General Regional Disposition Disposition: Recovery Room / PACU
--- NOTE | 2018-03-17 11:21 | Discharge Instructions-SurgCtr ---
Discharge Instructions Date of Service March 17, 2018. Visit Reason for Visit: Left Shoulder Ac Joint Disorder, Soft Tissue Lesio Discharge Discharge Diagnosis / Problem: SAME ABOVE Discharge Goals Goal(s): Decrease discomfort, Improve function Medications Stopped Medications Name(s): last dose of Ibuprofen seven days ago Restart Stopped Medication(s): MAY RESTART WHEN FINISHED WITH THE TORADOL TAKE TORADOL EVERY 8 HOURS WITH FOOD UNTIL FINISHED Activity Recommendations Activity Limitations: as noted below Lifting Limitations: gradually increase as tolerated Exercise/Sports Limitations: gradually increase as tolerated Shower/Bathe: tomorrow Anesthesia . Post Anesthesia Instructions: If you have had General Anesthesia or IV Sedation: * Do not drive today. * Resume driving when surgeon permits. * Do not make important decisions or sign legal documents today. * Call surgeon for: 1. Temperature elevations greater than 101 degrees F. 2. Uncontrollable pain. 3. Excessive bleeding. 4. Persistent nausea and vomiting. 5. Medication intolerance (nausea, vomiting or rash). * For nausea and vomiting use only clear liquids such as: tea, soda, bouillon until nausea subsides, then gradually increase diet as tolerated. * If you have any concerns or questions, call your surgeon's office. If physician is unavailable and it is an emergency, call 911 or go to the nearest emergency room. . Instructions / Follow-Up Instructions / Follow-Up MEDICATIONS: * Resume previous medications unless instructed otherwise by your surgeon. * Always take pain medication on a full stomach or with food to avoid upset stomach. * Do not drink alcohol or drive while taking narcotics. * Ibuprofen or Tylenol may be taken if narcotic not needed. SPECIAL CARE INSTRUCTIONS: __ None _X_ Keep extremity elevated and iced x 48 hours; apply ice 20-30 minutes 8-10 times/day. May remove at night. _X_ Sling (WEAR FOR COMFORT ONLY) __24 hrs/day __ Remove at night __ Shoulder Immobilizer __ 24 hrs/day __ Remove at night _X_ Dressing __ Maintain until seen in office, may shower with plastic over site _X_ Remove dressings in 24-48 hours and then may shower _X_ Cover incisions with band-aids after showering __ Do not remove steri-strips Call physician if chills or temperature rises above 102 degrees or pain unrelieved by prescribed pain medications at . . Diet Recommendations Home Diet: no limitations Procedures Procedures Performed: Left Shoulder Arthr;oscopy with Subacromial Decompression, Distal Clavicle Excision Pending Studies Studies pending at discharge: no Work Instructions Return To Work: after follow-up Lifting Limitations: none Medical Emergencies . Who to Call and When: Medical Emergencies: If at any time you feel your situation is an emergency, please call 911 immediately. . Non-Emergent Contact Non-Emergency issues call your: Primary Care Provider Call Non-Emergent contact if: you have a fever, temperature is above 101.5 . . "Provider Documentation" section prepared by Raymond Whitaker. .
--- NOTE | 2018-03-17 12:07 | Anesthesia Progress Nt - [facility] ---
Anesthesia Post Op Note Date & Time March 17, 2018 at 12:07 Vital Signs Pain Intensity: 0 Vital Signs Past 12 Hours Date Time Temp Pulse Resp B/P (MAP) Pulse Ox O2 Delivery O2 Flow Rate FiO2 03/17/18 11:51 138/77 03/17/18 11:49 86 28 95 03/17/18 11:49 88 28 03/17/18 11:48 87 24 03/17/18 11:48 86 24 96 03/17/18 11:47 36.5 88 19 146/66 96 Room Air 03/17/18 11:47 146/66 03/17/18 11:43 94 26 97 03/17/18 11:43 91 26 03/17/18 11:41 151/78 03/17/18 11:38 95 29 03/17/18 11:38 95 29 98 03/17/18 11:37 93 26 03/17/18 11:37 91 26 98 03/17/18 11:36 158/83 03/17/18 11:32 86 23 100 03/17/18 11:32 86 23 03/17/18 11:31 149/79 03/17/18 11:27 83 28 100 03/17/18 11:27 83 28 03/17/18 11:26 149/70 03/17/18 11:24 82 23 03/17/18 11:24 80 23 150/73 99 03/17/18 11:21 149/64 03/17/18 11:20 80 15 149/64 100 03/17/18 11:19 81 15 99 03/17/18 11:19 82 15 03/17/18 11:18 143/89 03/17/18 11:16 36.1 79 20 143/89 99 Mask 6 03/17/18 10:23 0 03/17/18 10:18 78 03/17/18 10:18 75 6 99 03/17/18 10:16 122/77 03/17/18 10:13 66 0 100 03/17/18 10:13 66 03/17/18 10:12 122/48 03/17/18 10:10 121/73 03/17/18 10:08 76 03/17/18 10:08 75 0 97 03/17/18 10:03 79 03/17/18 10:03 78 0 96 03/17/18 09:45 36.5 75 20 142/80 (100) 97 Room Air 03/17/18 09:40 142/80 Notes Mental Status: alert / awake / arousable, participated in evaluation Pt Amnestic to Procedure: Yes Nausea / Vomiting: adequately controlled Pain: adequately controlled Airway Patency, RR, SpO2: stable & adequate BP & HR: stable & adequate Hydration State: stable & adequate Anesthetic Complications: no major complications apparent
[2018-03-17 12:08] VITALS: TEMP 36.4
[2018-03-17 12:26] VITALS: BP 126/77; PULSE 87; O2SAT 97
--- NOTE | 2018-03-17 13:18 | OPERATIVE REPORT ---
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 POSTOPERATIVE DIAGNOSES: Same. PROCEDURE: Left shoulder diagnostic arthroscopy with limited debridement, acromioplasty, and distal clavicle resection. SURGEON: Dr. Talat Lerner. EQUAL OPPORTUNITY COUNSELOR: Raymond Whitaker PA-C, whose assistance was necessary for positioning the arm and help with instrumentation. ANESTHESIA: General with a left interscalene nerve block. COMPLICATIONS: None. CONDITION: Stable to PACU. INDICATIONS: Mari is a very pleasant 67-year-old female who presented to my office with a several-month history of increasing left shoulder pain. She did not recall any traumatic event. MRI and clinical examination were diagnostic for severe external impingement and AC joint arthritis. After failing conservative treatment, she elected to undergo arthroscopy. DESCRIPTION OF PROCEDURE: On 03/17/2018, she arrived at [facility] for the above procedure. She was seen in the preoperative holding and the operative extremity was identified and signed. She was given a preoperative antibiotic and a left interscalene nerve block. She was taken back to the operating room, laid on table in supine position and put under general anesthesia. She was then put into the beachchair position. The left shoulder was prepped and draped in sterile fashion. Time-out was done. The patient's operative extremity was properly identified. A scope was introduced in the posterior portal. Diagnostic arthroscopy showed no cartilage damage to the humeral head or the glenoid. There was a little fraying of the anterior labrum. The biceps tendon was intact and went through a normal size biceps belkys mechanism. The supraspinatus, infraspinatus, teres minor and subscapularis were all checked and intact. An anterior portal was made. A shaver was used to do a limited debridement of the intraarticular structures. The biceps tendon was pulled into the joint and there was no evidence of pathology. The scope was then put into the subacromial space. There was significant amount of very red and inflamed bursa. A lateral portal was made. A shaver was used to do a complete subacromial and subdeltoid bursectomy. An ablator was used to tease the coracoacromial ligament off the undersurface of the acromion and a 5-0 james was used to complete an acromioplasty of a Bigliani type 3 acromion. A shaver was used to remove any excess debris and the bursal side of the rotator cuff was examined extensively without evidence of tear. Attention was then turned to the distal clavicle. Through an anterior portal, a shaver and ablator were used to skeletonize the distal clavicle. A 5-0 james was then used to resect the distal 5 mm in the clavicle. Complete resection was checked under direct visualization. Final diagnostic arthroscopy showed no additional pathology. Arthroscopic instruments were removed from the shoulder. Portal sites were closed with 3-0 nylon. She was then placed in a soft dressing and regular arm sling. She was then extubated, transferred to a litter and taken to postanesthesia care unit in stable condition. She tolerated the procedure well. I attest to the content of the Intraoperative Record and any orders documented therein. Any exception s are noted below.
== END | disposition home or self-care (01) ==
LOC: X.SURG 09:24
PROVIDERS: ATTEND Orthopaedic Surgery
DX: M19.012 Primary osteoarthritis, left shoulder (principal); M75.42 Impingement syndrome of left shoulder; F41.9 Anxiety disorder, unspecified; Z88.2 Allergy status to sulfonamides; Z88.1 Allergy status to other antibiotic agents; M19.90 Unspecified osteoarthritis, unspecified site; K21.9 Gastro-esophageal reflux disease without esophagitis; F32.9 Major depressive disorder, single episode, unspecified; Z87.820 Personal history of traumatic brain injury